=== PATIENT | female | born 1930 | race African-American/Black ===

== ENCOUNTER 2017-02-25 18:40 | Emergency (ER) | payer OTHER ==
[~2017-02-25] VITALS: Ht 170.2 cm; Wt 73.3 kg
[~2017-02-25 18:40] MED LIST: ACETAMINOPHEN325 M1 PO; AMANTADINE100 M1 PO; CARBIDOPA/LEVO1 EACH PO; CIPRO500 MG PO; DAILY VITE1 EAC1 PO; DULCOLAX10 MG PR; FERROUS SULFAT325 MG PO; FISH OIL 1,0001 EA11 PO; FLEET MINERAL133 ML PR; LANTUS 10100 UNITS/ SC; LOSARTAN POTASS50 MG PO; MILK OF MAGN PO; MIRTAZAPINE15 MG PO; NATURAL BALANCE15 M1 BOTH EYES; NOVOLOG 10100 UNITS/ SC; REGLAN5 MG PO; SERTRALINE HCL25 MG PO; TRAMADOL HCL50 MG PO; TYLENOL WITH C1 EACH PO; VITAMIN B-12500 MC5 SL; VITAMIN D31000 UNI2 PO; ZOFRAN4 MG PO
[2017-02-25] MEDS ORDERED: PREDNISONE50 MG PO (20:54)
[2017-02-26 00:26] VITALS: BP 136/83
== END 2017-02-26 00:27 ==
LOC: EME 18:40
DX: J44.1 Chronic obstructive pulmonary disease with (acute) exacerbation (principal); G20 Parkinson's disease; F02.80 Dementia in other diseases classified elsewhere, unspecified severity, without behavioral disturbance, psychotic disturbance, mood disturbance, and anxiety; I10 Essential (primary) hypertension; E11.9 Type 2 diabetes mellitus without complications; Z79.4 Long term (current) use of insulin
CPT/HCPCS: 71046; 94640; 99281; 99285; J7512

== ENCOUNTER 2017-02-28 10:53 | Inpatient (IN) | payer OTHER ==
[~2017-02-28] VITALS: Ht 162.6 cm; Wt 73.0 kg
[~2017-02-28 10:53] MED LIST changes: +PREDNISONE50 MG PO
[2017-02-28 14:13] LABS: HEMATOCRIT 26.3 % (36.0-46.0); HEMOGLOBIN 8.5 G/DL (11.9-15.5); MCH 32.1 PG (29.0-34.0); MCHC 32.3 G/DL (30.0-36.0); MCV 99.2 FL (83-99); PLATELET COUNT 169 K/uL (156-360); RBC DIS.WIDTH-CV 14.7 % (11.8-14.6); RBC DIS.WIDTH-SD 51.9 % (39-53); RED BLOOD COUNT 2.65 M/uL (3.80-5.20); WHITE BLOOD COUNT 15.3 K/uL (4.1-10.2)
[2017-02-28 14:23] LABS: CHLORIDE 110 mEq/L (99-109); SODIUM 142 mEq/L (136-147)
[2017-02-28 14:25] LABS: GLUCOSE 251 mg/dL (70-99)
[2017-02-28 14:29] LABS: GFR ESTIMATE (CALCULATED) 19 mL/min/
[2017-02-28 14:30] LABS: UREA NITROGEN (BUN) 31 mg/dL (9-23)
[2017-02-28 15:26] LABS: APPEARANCE SL.HAZY ((CLEAR)); BILIRUBIN NEGATIVE; BLOOD NEGATIVE; GLUCOSE (STRIP) NEGATIVE; KETONES 5; LEUKOCYTES NEGATIVE; NITRITE NEGATIVE; PROTEIN (STRIP) >=500; SPECIFIC GRAVITY 1.024 (1.000-1.030); UROBILINOGEN 0.2 MG/DL (0.2-1.0)
[2017-02-28 15:37] LABS: BACTERIA RARE /HPF; EPITHELIAL CELLS RARE /HPF; MUCUS TRACE /LPF; RED BLOOD CELLS 0-5 /HPF (0-5); UCUL ADDED? NO; WHITE BLOOD CELLS 0-5 /HPF (0-5)
[2017-02-28 15:39] LABS: COLOR YELLOW ((YELLOW))
[2017-02-28] MEDS ORDERED: EFFEXOR XR37.5 MG PO (16:26)
[2017-02-28] MEDS ORDERED: PREDNISONE10 MG PO ×2 (16:27→16:31)
[2017-02-28] MEDS ORDERED: SEROQUEL50 MG PO (16:27)
[2017-02-28] MEDS ORDERED: COLACE100 MG PO (16:28)
[2017-02-28] MEDS ORDERED: CEFTIN500 MG PO (16:28)
[2017-02-28] MEDS ORDERED: ENULOSE10 GM/15 M PO (16:29)
[2017-02-28] MEDS ORDERED: PROBIOTIC1 EAC1 PO (16:31)
[2017-02-28] MEDS ORDERED: SALINE NOSE SPR45 M1 BOTH NARES (16:32)
[2017-02-28] MEDS ORDERED: DUONEB 2.5-0.5 M3 ML AEROSOL (16:32)
[2017-02-28] MEDS ORDERED: BIOFREEZE GEL TP (16:34)
[2017-02-28] MEDS ORDERED: GLUCAGEN1 M1 IM (16:35)
[2017-02-28] MEDS ORDERED: GLUTOSE 1537.5 GM PO (16:35)
[2017-02-28] MEDS ORDERED: OXYCODONE HCL5 MG PO (16:36)
[2017-02-28] MEDS ORDERED: TYLENOL REGULA325 MG PO (16:37)
[2017-02-28 18:40] VITALS: BP 164/92
[2017-02-28 22:53] VITALS: BP 186/70
[2017-03-01 02:27] VITALS: BP 160/70
[2017-03-01 06:45] VITALS: BP 160/70
[2017-03-01 06:46] LABS: CHLORIDE 112 MEQ/L (99-109); GFR ESTIMATE (CALCULATED) 26 mL/min/; GLUCOSE 160 mg/dL (70-99); POTASSIUM 3.9 MEQ/L (3.7-5.4); SODIUM 143 MEQ/L (136-147); UREA NITROGEN (BUN) 28 mg/dL (9-23)
[2017-03-01 06:57] LABS: CREATININE 2.3 MG/DL (0.6-1.3)
[2017-03-01 16:09] VITALS: BP 182/80
[2017-03-02 00:35] VITALS: BP 175/75
[2017-03-02 07:09] LABS: CHLORIDE 111 MEQ/L (99-109); GFR ESTIMATE (CALCULATED) 37 mL/min/; SODIUM 142 MEQ/L (136-147); UREA NITROGEN (BUN) 23 mg/dL (9-23)
[2017-03-02 07:16] LABS: CREATININE 1.7 MG/DL (0.6-1.3); GLUCOSE 76 mg/dL (70-99)
[2017-03-02 07:40] VITALS: BP 139/77
[2017-03-02 17:23] VITALS: BP 133/75; BP 139/77
[2017-03-02 23:34] VITALS: BP 171/82
[2017-03-03 07:38] VITALS: BP 157/74
[2017-03-03 15:45] VITALS: BP 148/77
[2017-03-03 23:12] VITALS: BP 173/72
[2017-03-04 07:40] VITALS: BP 178/74
[2017-03-04 15:25] VITALS: BP 139/75
[2017-03-05 06:56] LABS: HEMATOCRIT 30.1 % (36.0-46.0); HEMOGLOBIN 9.5 G/DL (11.9-15.5); MCH 31.9 PG (29.0-34.0); MCHC 31.6 G/DL (30.0-36.0); PLATELET COUNT 159 K/uL (156-360); RBC DIS.WIDTH-CV 15.4 % (11.8-14.6); RBC DIS.WIDTH-SD 55.1 % (39-53); RED BLOOD COUNT 2.98 M/uL (3.80-5.20)
[2017-03-05 07:22] LABS: CHLORIDE 118 MEQ/L (99-109); CREATININE 1.4 MG/DL (0.6-1.3); GFR ESTIMATE (CALCULATED) 46 mL/min/; GLUCOSE 109 mg/dL (70-99); POTASSIUM 3.9 MEQ/L (3.7-5.4); UREA NITROGEN (BUN) 16 mg/dL (9-23)
[2017-03-05 07:23] LABS: SODIUM 152 MEQ/L (136-147)
[2017-03-05 12:20] VITALS: BP 152/84
[2017-03-05 17:59] VITALS: BP 158/88
[2017-03-06 00:19] VITALS: BP 129/78
[2017-03-06 07:00] VITALS: BP 136/78
[2017-03-06 15:00] VITALS: BP 140/72
[2017-03-06 22:33] VITALS: BP 139/84; BP 193/84
[2017-03-07 06:24] LABS: PLATELET COUNT 161 K/uL (156-360)
[2017-03-07 06:38] LABS: CHLORIDE 114 MEQ/L (99-109); GFR ESTIMATE (CALCULATED) 32 mL/min/; GLUCOSE 135 mg/dL (70-99); POTASSIUM 3.6 MEQ/L (3.7-5.4); SODIUM 153 MEQ/L (136-147); UREA NITROGEN (BUN) 15 mg/dL (9-23)
[2017-03-07 06:45] VITALS: BP 188/87
[2017-03-07 06:48] LABS: CREATININE 1.9 MG/DL (0.6-1.3)
[2017-03-07 07:20] LABS: HEMATOCRIT 28.4 % (36.0-46.0); HEMOGLOBIN 8.9 G/DL (11.9-15.5); MCH 31.6 PG (29.0-34.0); MCHC 31.3 G/DL (30.0-36.0); MCV 100.7 FL (83-99); RBC DIS.WIDTH-CV 15.5 % (11.8-14.6); RBC DIS.WIDTH-SD 55.8 % (39-53); RED BLOOD COUNT 2.82 M/uL (3.80-5.20)
[2017-03-07 07:29] LABS: WHITE BLOOD COUNT 30.2 K/uL (4.1-10.2)
[2017-03-07 15:03] VITALS: BP 190/81
[2017-03-08 00:35] VITALS: BP 146/86
[2017-03-08 08:03] VITALS: BP 140/75
[2017-03-08 16:11] VITALS: BP 141/84
[2017-03-08 23:07] VITALS: BP 206/91
[2017-03-09 03:55] VITALS: BP 170/90
[2017-03-09 07:45] VITALS: BP 181/79
[2017-03-09 11:11] VITALS: BP 197/84
[2017-03-09 16:00] VITALS: BP 160/68
[2017-03-10 00:23] VITALS: BP 118/59
[2017-03-10 04:00] VITALS: BP 124/64
[2017-03-10 07:04] LABS: BASOPHIL (%) 0.2 % (0-1); BASOPHIL COUNT 0.1 K/uL (0-0.1); EOSINOPHIL (%) 0 % (0-5); HEMATOCRIT 26.2 % (36.0-46.0); HEMOGLOBIN 8.2 G/DL (11.9-15.5); IMMATURE GRANULOCYTE (%) 3.1 % (0.0-0.7); LYMPHOCYTE (%) 60.1 % (15-42); LYMPHOCYTE COUNT 14.3 K/uL (1.0-2.8); MCH 31.1 PG (29.0-34.0); MCHC 31.3 G/DL (30.0-36.0); MCV 99.2 FL (83-99); MONOCYTE (%) 3.3 % (3-12); MONOCYTE COUNT 0.8 K/uL (0-0.8); NEUTROPHIL (%) 33.3 % (45-76); NEUTROPHIL COUNT 7.9 K/uL (1.8-6.4); NRBC (%) 0.1 /100 WBC (0-0); PLATELET COUNT 148 K/uL (156-360); RBC DIS.WIDTH-SD 57.1 % (39-53); RED BLOOD COUNT 2.64 M/uL (3.80-5.20); WHITE BLOOD COUNT 23.8 K/uL (4.1-10.2)
[2017-03-10 07:21] LABS: CHLORIDE 123 MEQ/L (99-109); CREATININE 2.2 MG/DL (0.6-1.3); GFR ESTIMATE (CALCULATED) 27 mL/min/; GLUCOSE 214 mg/dL (70-99); POTASSIUM 4.2 MEQ/L (3.7-5.4); SODIUM 155 MEQ/L (136-147)
[2017-03-10 07:26] LABS: UREA NITROGEN (BUN) 39 mg/dL (9-23)
[2017-03-10 08:19] VITALS: BP 175/77
[2017-03-10 16:09] VITALS: BP 155/74
[2017-03-10 23:58] VITALS: BP 176/101
[2017-03-11 03:45] VITALS: BP 145/67
[2017-03-11 06:45] VITALS: BP 174/70
[2017-03-11 07:02] LABS: HEMATOCRIT 26.8 % (36.0-46.0); HEMOGLOBIN 8.6 G/DL (11.9-15.5); MCH 32.3 PG (29.0-34.0); MCHC 32.1 G/DL (30.0-36.0); MCV 100.8 FL (83-99); NRBC (%) 0.2 /100 WBC (0-0); PLATELET COUNT 158 K/uL (156-360); RBC DIS.WIDTH-CV 16.2 % (11.8-14.6); RBC DIS.WIDTH-SD 57.1 % (39-53); RED BLOOD COUNT 2.66 M/uL (3.80-5.20); WHITE BLOOD COUNT 27.1 K/uL (4.1-10.2)
[2017-03-11 07:22] LABS: ALBUMIN 3.2 G/DL (3.2-4.8); ALKALINE PHOSPHATASE 53 IU/L (3-129); ALT (GPT) 6 IU/L (3-49); AST (GOT) 12 IU/L (2-34); CHLORIDE 120 MEQ/L (99-109); CREATININE 1.9 MG/DL (0.6-1.3); GFR ESTIMATE (CALCULATED) 32 mL/min/; GLUCOSE 238 mg/dL (70-99); POTASSIUM 4.4 MEQ/L (3.7-5.4); SODIUM 152 MEQ/L (136-147); TOTAL BILIRUBIN 0.5 MG/DL (0.0-1.0); TOTAL PROTEIN 5.6 G/DL (6.4-8.3); UREA NITROGEN (BUN) 39 mg/dL (9-23)
[2017-03-11] MEDS ORDERED: TRAZODONE HCL50 MG PO (08:12)
[2017-03-11] MEDS ORDERED: CLONIDINE1 EAC2 TD (08:12)
[2017-03-11] MEDS ORDERED: TRAMADOL HCL50 MG PO (08:12)
[2017-03-11 11:00] VITALS: BP 135/60
[2017-03-11 15:19] VITALS: BP 145/65
== END 2017-03-11 18:19 | DRG 194 ==
LOC: EME 10:53 → 5EAST 15:00 → EDOF 15:00 → ENRESERV 15:42 → 5EAST 17:48 → ENRESERV 03-04 12:10 → 5EAST 03-04 14:20
PROVIDERS: Emergency Medicine; Family Medicine; Internal Medicine
DX: J18.9 Pneumonia, unspecified organism (principal); J44.0 Chronic obstructive pulmonary disease with (acute) lower respiratory infection; N17.9 Acute kidney failure, unspecified; E11.22 Type 2 diabetes mellitus with diabetic chronic kidney disease; E11.649 Type 2 diabetes mellitus with hypoglycemia without coma; N18.4 Chronic kidney disease, stage 4 (severe); G20 Parkinson's disease; L30.9 Dermatitis, unspecified; C85.10 Unspecified B-cell lymphoma, unspecified site; F03.90 Unspecified dementia, unspecified severity, without behavioral disturbance, psychotic disturbance, mood disturbance, and anxiety; D63.1 Anemia in chronic kidney disease; I12.9 Hypertensive chronic kidney disease with stage 1 through stage 4 chronic kidney disease, or unspecified chronic kidney disease; M31.0 Hypersensitivity angiitis; Z51.5 Encounter for palliative care; J98.11 Atelectasis; I77.6 Arteritis, unspecified; I25.10 Atherosclerotic heart disease of native coronary artery without angina pectoris; Z79.4 Long term (current) use of insulin; Z87.891 Personal history of nicotine dependence; Z90.710 Acquired absence of both cervix and uterus; Z83.3 Family history of diabetes mellitus; Z82.49 Family history of ischemic heart disease and other diseases of the circulatory system; Z82.3 Family history of stroke
CPT/HCPCS: 71045; 71046; 80048; 80053; 81003; 82948; 83605; 85025; 85027; 87040; 94640; 94640 76; 94799; 99202; 99281; 99285; C1753; G9033; J0360; J0696; J1100; J1644; J1815; J1956; J7030; J7512